=== PATIENT | female | born 1990 | race Caucasian/White ===

== ENCOUNTER 2019-07-27 14:06 | Outpatient (CLI) | payer MEDICAID ==
[~2019-07-27] VITALS: Ht 170.2 cm; Wt 66.2 kg
[2019-07-27 15:37] VITALS: BP 108/64
--- NOTE | 2019-07-28 15:00 | Consultation ---
DATE OF CONSULTATION: 07/27/2019 CONSULTING PHYSICIAN: Rolf Kang M.D. CHIEF COMPLAINT: Rectal bleeding. HISTORY OF PRESENT ILLNESS: This is a very pleasant 29-year-old female without any past medical history, apparently had a trip to [facility] a few months ago, had an episode of bloody diarrhea, which went away, came back, again another bloody stool, went away, and came back now this time with diarrhea. Denies any nausea or vomiting. Denies any abdominal pain. Denies any dysphagia. Denies any odynophagia. PAST MEDICAL HISTORY: None. PAST SURGICAL HISTORY: Cosmetic nose surgery. MEDICATIONS: She only takes supplements. FAMILY HISTORY: No family history of GI malignancies except for sister had breast cancer. SOCIAL HISTORY: The patient drinks alcohol socially. Denies any recent tobacco or IV drug abuse. ALLERGIES: No known allergies. REVIEW OF SYSTEMS: Positive for diarrhea and rectal bleeding. PHYSICAL EXAMINATION: VITAL SIGNS: Temperature 98.5, blood pressure 108/64, pulse 74, respirations 20. HEENT: Normocephalic, atraumatic. Sclerae anicteric. NECK: Supple. No evidence of obvious lymphadenopathy. CARDIOVASCULAR: Regular rate and rhythm. Plus S1-S2. LUNGS: Clear to auscultation bilaterally. ABDOMEN: Positive bowel sounds. Soft and nontender. No rebound. No guarding. No peritoneal sign. EXTREMITIES: No cyanosis, no clubbing, no edema. ASSESSMENT AND PLAN: This is a 29-year-old female with 2 episodes of rectal bleeding, now with diarrhea. According to the patient, the primary care physician had done a stool study, which came back negative infectious cause for her symptoms. Given these symptoms are persistent, given had rectal bleeding, now with diarrhea, there is a concern for possibility of Crohn disease. I recommend the patient to have a colonoscopy. The patient agreed. We are going to schedule her when the authorization is obtained. Rolf Kang M.D. DR: CHRIS JOB#: [id number] CC:
== END 2019-07-27 16:06 | disposition home or self-care (01) ==
LOC: PAN 14:06
DX: K62.5 Hemorrhage of anus and rectum (principal); R19.7 Diarrhea, unspecified
CPT/HCPCS: G0463